=== PATIENT | male | born 1995 | race Hispanic/Latino ===

== ENCOUNTER 2019-05-17 02:27 | Emergency (ER) | payer OTHER, SELFPAY ==
[2019-05-17] MEDS ORDERED: DERMABOND SKIN ADHESIVE TOP ONE (02:31)
[2019-05-17] MEDS ORDERED: KETOROLAC 30 MG/ML INJ ONE (02:43)
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
[2019-05-17 03:17] VITALS: O2SAT 100
[2019-05-17 03:18] VITALS: BP 127/87
== END 2019-05-17 03:11 | disposition home or self-care (01) ==
LOC: ER 02:27
PROC: 0JQ10ZZ Repair Face Subcutaneous Tissue and Fascia, Open Approach (ICD-10-PCS; principal; 2019-05-17)
DX: S01.112A Laceration without foreign body of left eyelid and periocular area, initial encounter (principal); Y09 Assault by unspecified means; Y93.9 Activity, unspecified; Y92.009 Unspecified place in unspecified non-institutional (private) residence as the place of occurrence of the external cause
CPT/HCPCS: 99284

== ENCOUNTER 2020-07-20 13:26 | Emergency (ER) | payer SELFPAY ==
[2020-07-20] MEDS ORDERED: TETANUS & DIPHTHERIA TOX,ADULT 0.5 ML VIAL ONE (15:05)
[2020-07-20] MEDS ORDERED: AMOX/K CLAV 875 MG TAB ONE (15:05)
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
[2020-07-20 16:17] VITALS: TEMP 98.2
[2020-07-20 16:18] VITALS: BP 132/80; O2SAT 99
== END 2020-07-20 16:01 | disposition home or self-care (01) ==
LOC: ER 13:26
DX: S61.235A Puncture wound without foreign body of left ring finger without damage to nail, initial encounter (principal); Y04.1XXA Assault by human bite, initial encounter; F17.210 Nicotine dependence, cigarettes, uncomplicated; Z23 Encounter for immunization
CPT/HCPCS: 90471; 90714; 99283

== ENCOUNTER 2020-08-03 17:14 | Emergency (ER) | payer SELFPAY ==
[2020-08-03] MEDS ORDERED: NA CHLORIDE 0.9% 1,000 ML IV ONE (17:15)
[2020-08-03] MEDS ORDERED: NALOXONE HCL 2 MG/2 ML VIAL ONE ×2 (17:28→20:32)
[2020-08-03] MEDS ORDERED: RSI MEDICATION KIT IV ONE (17:30)
[2020-08-03 17:34] LABS: Urine Blood Negative (Negative); Urine Glucose 1+ (Negative); Urine Protein 2+ (Negative)
[2020-08-03 17:51] LABS: Absolute Lymphocytes (CBC) 4.6 K/uL (0.7-4.9); Basophils % 0.7 % (0-1.3); Hematocrit 45.6 % (39.6-49.0); Lymphocytes % 31.8 % (15.3-44.8); MPV 9.9 fL (7.6-11.3); RBC Red Blood Cell Count 4.89 M/uL (4.33-5.43)
[2020-08-03 17:55] LABS: Protime INR 1.01
[2020-08-03 18:06] LABS: ALT/SGPT 27 U/L (12-78); AST/SGOT 27 U/L (15-37); Albumin 3.9 g/dL (3.4-5.0); Alkaline Phosphatase 87 U/L (45-117); BUN Blood Urea Nitrogen 12 mg/dL (7-18); Bicarbonate 25 mmol/L (21-32); Bilirubin Direct 0.1 mg/dL (0-0.2); Bilirubin Total 0.4 mg/dL (0.2-1.0); Glucose Level 355 mg/dL (74-106); Potassium 4.1 mmol/L (3.5-5.1); Protein, Total 7.5 g/dL (6.4-8.2); Sodium Level 138 mmol/L (136-145)
[2020-08-03 18:06] LABS: Barbiturates NEGATIVE (NEGATIVE); Benzodiazepines NEGATIVE (NEGATIVE); Cocaine NEGATIVE (NEGATIVE); METHAMPHETAM NEGATIVE (NEGATIVE); Methadone NEGATIVE (NEGATIVE); Opiates NEGATIVE (NEGATIVE); Phencyclidine NEGATIVE (NEGATIVE); THC Cannibis POSITIVE (NEGATIVE)
--- NOTE | 2020-08-03 18:12 | RAD REPORT ---
EXAM DESCRIPTION: Vasu Single View08/03/2020 5:48 pm CLINICAL HISTORY: Shortness of breath COMPARISON: none FINDINGS: The lungs appear clear of acute infiltrate. The heart is normal size IMPRESSION: No acute abnormalities displayed
[2020-08-03] MEDS ORDERED: NA CHLORIDE 0.9% 1,000 ML ONE (19:32)
--- NOTE | 2020-08-03 23:28 | EDPHYS ---
Physician Documentation [facility] Name: Jose Wyatt Age: 25 yrs Sex: Male : 1995 Arrival Date: 08/03/2020 Time: 17:14 Bed 7 Private MD: ED Physician Ysabel Marquez HPI: 08/03 18:13 This 25 yrs old Male presents to ER via Carried with complaints of Overdose. ma2 18:13 The patient presents to the emergency department after a known overdose, a result of ma2 recreational substance abuse. Severity of symptoms: At their worst the symptoms were severe in the emergency department the symptoms are unchanged. Unable to obtain HPI due to altered mental status. The patient has experienced similar episodes in the past. Historical: - Allergies: 17:22 Unable to obtain; ph - PMHx: 17:22 Asthma; ph - PSHx: 17:22 L third finger; ph - Immunization history:: Adult Immunizations unknown. - Social history:: Smoking status: unknown. ROS: 18:13 Constitutional: Negative for fever, chills, and weight loss. ma2 18:13 Unable to obtain ROS due to altered mental status. Exam: 18:13 Head/Face: Normocephalic, atraumatic. ENT: Nares patent. No nasal discharge, no ma2 septal abnormalities noted. Tympanic membranes are normal and external auditory canals are clear. Oropharynx with no redness, swelling, or masses, exudates, or evidence of obstruction, uvula midline. Mucous membranes moist. Neck: Trachea midline, no thyromegaly or masses palpated, and no cervical lymphadenopathy. Supple, full range of motion without nuchal rigidity, or vertebral point tenderness. No Meningismus. 18:13 Cardiovascular: Regular rate and rhythm with a normal S1 and S2. No gallops, murmurs, or rubs. Normal PMI, no JVD. No pulse deficits. Respiratory: Lungs have equal breath sounds bilaterally, clear to auscultation and percussion. No rales, rhonchi or wheezes noted. No increased work of breathing, no retractions or nasal flaring. Abdomen/GI: Soft, non-tender, with normal bowel sounds. No distension or tympany. No guarding or rebound. No evidence of tenderness throughout. MS/ Extremity: Pulses equal, no cyanosis. Neurovascular intact. Full, normal range of motion. 18:13 Eyes: Pupils: constricted, bilaterally. 18:13 Neuro: Orientation: Not oriented to person, place, time, Motor: moving all extremities . Vital Signs: 17:10 Pulse 104; Resp 0; Pulse Ox 77% on R/A; jd3 17:11 Resp 20 A; Pulse Ox 95% on ambu bag; jd3 17:12 BP 138 / 91; Pulse 104; Resp 26 A; Pulse Ox 100% ; jd3 17:14 BP 121 / 76; Pulse 119; Resp 21 S; Pulse Ox 100% on Non-rebreather mask; jd3 17:18 BP 101 / 65; Pulse 116; Resp 25 S; Pulse Ox 100% on Non-rebreather mask; jd3 17:23 BP 101 / 65; Pulse 111; Resp 18; Pulse Ox 100% on R/A; ph 17:56 BP 121 / 82; Pulse 103; Resp 22 S; Pulse Ox 100% on R/A; jd3 18:37 BP 118 / 70; Pulse 103; Resp 19 S; Temp 97.1(TE); Pulse Ox 100% on R/A; jd3 19:30 BP 125 / 86; Pulse 92; Resp 14; Pulse Ox 100% on R/A; jb4 20:00 BP 121 / 82; Pulse 82; Resp 12; Pulse Ox 100% on R/A; jb4 21:15 BP 120 / 85; Pulse 70; Resp 13; Pulse Ox 100% on R/A; jb4 22:30 BP 111 / 79; Pulse 65; Resp 16; Pulse Ox 99% on R/A; jb4 23:30 BP 127 / 86; Pulse 65; Resp 17; Pulse Ox 99% on R/A; jb4 MDM: 18:08 Patient medically screened. ma2 18:13 Differential diagnosis: polypharmacy, over medication, hypoglycemia. ED course: given ma2 narcan and he is awake now . 23:25 Data reviewed: vital signs, nurses notes. Counseling: I had a detailed discussion with bethany the patient and/or guardian regarding: the historical points, exam findings, and any diagnostic results supporting the discharge/admit diagnosis, lab results, the need for outpatient follow up, to return to the emergency department if symptoms worsen or persist or if there are any questions or concerns that arise at home. 08/03 17:21 Order name: Acetaminophen; Complete Time: 19:09 [facility] 08/03 17:21 Order name: BMP; Complete Time: 19:09 [facility] 08/03 17:21 Order name: CBC with Diff; Complete Time: 19:09 [facility] 08/03 17:21 Order name: Ethanol; Complete Time: 19:09 [facility] 08/03 17:21 Order name: Hepatic Function; Complete Time: 19:09 [facility] 08/03 17:21 Order name: Protime (+inr); Complete Time: 19:09 [facility] 08/03 17:21 Order name: Ptt, Activated; Complete Time: 19:09 [facility] 08/03 17:21 Order name: Salicylate; Complete Time: 19:09 [facility] 08/03 17:21 Order name: Urine Drug Screen; Complete Time: 19:09 [facility] 08/03 17:33 Order name: Urine Dipstick-Ancillary; Complete Time: 19:09 [facility] 08/03 17:42 Order name: XRAY Chest (1 view); Complete Time: 19:09 [facility] 08/03 22:36 Order name: BMP; Complete Time: 00:16 [facility] 08/03 17:21 Order name: EKG; Complete Time: 17:21 [facility] 08/03 17:21 Order name: EKG - Nurse/Tech; Complete Time: 18:03 [facility] 08/03 17:21 Order name: IV Saline Lock; Complete Time: 17:39 [facility] 08/03 17:21 Order name: Labs collected and sent; Complete Time: 17:39 [facility] 08/03 17:21 Order name: O2 Per Protocol; Complete Time: 17:35 [facility] 08/03 17:21 Order name: O2 Sat Monitoring; Complete Time: 17:38 [facility] 08/03 17:21 Order name: Urine Dipstick-Ancillary (obtain specimen); Complete Time: 18:35 [facility] Administered Medications: 17:11 Drug: NARcan (naloxone) 2 mg Route: IVP; Site: right antecubital; jd3 17:11 Drug: NS 0.9% 1000 ml Route: IV; Rate: 1 bolus; Site: right antecubital; jd3 17:13 Drug: NARcan (naloxone) 2 mg Route: IVP; Site: right antecubital; jd3 17:18 Drug: NARcan (naloxone) 2 mg Route: IVP; Site: right antecubital; jd3 19:15 Drug: NS 0.9% 1000 ml Route: IV; Rate: 1 bolus; Site: right antecubital; jb4 23:00 Follow up: Response: No adverse reaction; IV Status: Completed infusion; IV Intake: jb4 1000ml 20:15 Drug: NARcan (naloxone) 1 mg Route: IVP; Site: right antecubital; jb4 20:30 Follow up: Response: No adverse reaction; Marked relief of symptoms jb4 Disposition: 08/03/20 23:27 Discharged to Home. Impression: Drug Overdose, Hyperglycemia, unspecified. - Condition is Stable. - Discharge Instructions: Drug Overdose. - Medication Reconciliation Form, Thank You Letter, Antibiotic Education, Prescription Opioid Use form. - Follow up: Private Physician; When: 2 - 3 days; Reason: Recheck today's complaints, Continuance of care, Re-evaluation by your physician. Signatures: Dispatcher [employer] EDMS Kal Workman PA PA Kassy Hughes RN RN Lui Lamas RN RN jb4 Rip John RN RN jd3 Ysabel Marquez MD MD ma2 Corrections: (The following items were deleted from the chart) 18:03 17:21 Suicide Screening ([place]) ordered. bethany jd3 23:33 23:27 08/03/2020 23:27 Discharged to Home. Impression: Drug Overdose. Condition is [facility] Stable. Forms are Medication Reconciliation Form, Thank You Letter, Antibiotic Education, Prescription Opioid Use. Follow up: Private Physician; When: 2 - 3 days; Reason: Recheck today's complaints, Continuance of care, Re-evaluation by your physician. [facility] 08/04 00:43 08/03 23:33 08/03/2020 23:27 Discharged to Home. Impression: Drug Overdose; jb4 Hyperglycemia, unspecified. Condition is Stable. Discharge Instructions: Drug Overdose. Forms are Medication Reconciliation Form, Thank You Letter, Antibiotic Education, Prescription Opioid Use. Follow up: Private Physician; When: 2 - 3 days; Reason: Recheck today's complaints, Continuance of care, Re-evaluation by your physician. [facility]
--- NOTE | 2020-08-03 23:28 | ER ---
Nurse's Notes [facility] Name: Jose Wyatt Age: 25 yrs Sex: Male : 1995 Arrival Date: 08/03/2020 Time: 17:14 Bed 7 Private MD: Diagnosis: Drug Overdose;Hyperglycemia, unspecified Presentation: 08/03 07:14 Acuity: MARCI 1 hb 07:14 Chief complaint: Brought in unresponsive by friends who reported taking unknown amount hb of "percs". Coronavirus screen:. Ebola Screen: Unable to complete the Ebola screening because:. Onset of symptoms was August 03, 2020. 07:14 Method Of Arrival: Carried hb 17:23 Initial Sepsis Screen: Does the patient meet any 2 criteria? No. Patient's initial ph sepsis screen is negative. Does the patient have a suspected source of infection? No. Patient's initial sepsis screen is negative. Risk Assessment: Do you want to hurt yourself or someone else? Patient reports no desire to harm self or others. Historical: - Allergies: 17:22 Unable to obtain; ph - PMHx: 17:22 Asthma; ph - PSHx: 17:22 L third finger; ph - Immunization history:: Adult Immunizations unknown. - Social history:: Smoking status: unknown. Screenin:23 Abuse screen: Denies threats or abuse. Denies injuries from another. Nutritional ph screening: No deficits noted. Tuberculosis screening: No symptoms or risk factors identified. Fall Risk None identified. Assessment: 17:10 General: Appears distressed, Behavior is unresponsive. Neuro: Level of Consciousness is jd3 unresponsive, Oriented to none. Cardiovascular: Capillary refill is > 3 seconds. Respiratory: Airway is patent Respiratory effort is no respiratory effort noted. Derm: Skin is diaphoretic, Skin is dusky, pale, Skin temperature is cool. 17:13 Reassessment: DOOR TO DOOR SELLING AGENT Jose Armando and Dr. Marquez at bedside. hb 17:14 Reassessment: pt with spontaneous respirations. non- re breather placed on pt. jd3 17:20 Reassessment: pt with normal respirations, non-re breather placed on pt. jd3 17:25 Reassessment: pt starting to wake up, even and unlabored respirations. sitting up and jd3 not following directions, confused. security at bedside helping to hold pt for pt safety. 17:30 Reassessment: Patient and/or family updated on plan of care and expected duration. Pain jd3 level reassessed. Patient is alert, oriented x 3, equal unlabored respirations, skin warm/dry/pink. Neuro: Level of Consciousness is awake, alert, obeys commands, Oriented to person, place, time, situation. Cardiovascular: Denies chest pain, Capillary refill < 3 seconds Rhythm is sinus tachycardia. Respiratory: Airway is patent Respiratory effort is even, unlabored, Respiratory pattern is regular, symmetrical, Denies cough, shortness of breath. GI: No signs and/or symptoms were reported involving the gastrointestinal system. : No signs and/or symptoms were reported regarding the genitourinary system. EENT: No signs and/or symptoms were reported regarding the EENT system. Derm: Skin is intact, Skin is diaphoretic, Skin is normal, Skin temperature is cool. Musculoskeletal: No signs and/or symptoms reported regarding the musculoskeletal system. 17:30 Pain: Denies pain. jd3 17:56 Reassessment: Patient and/or family updated on plan of care and expected duration. Pain jd3 level reassessed. Patient is alert, oriented x 3, equal unlabored respirations, skin warm/dry/pink. girlfriend at bedside. 18:35 Reassessment: Patient appears in no apparent distress at this time. Patient and/or jd3 family updated on plan of care and expected duration. Pain level reassessed. Patient is alert, oriented x 3, equal unlabored respirations, skin warm/dry/pink. pt resting in bed talking with girlfriend. Patient states feeling better. 19:00 Reassessment: Patient appears in no apparent distress at this time. Patient and/or jb4 family updated on plan of care and expected duration. Pain level reassessed. Patient is alert, oriented x 3, equal unlabored respirations, skin warm/dry/pink. 20:00 Reassessment: Pt has had a decrease in level of consciousness. Is now more lethargic, jb4 reports feeling confused. Respirations remain even and unlabored at this time. provider notified. See MAR for orders. 20:25 Reassessment: Pt is now awake and alert x4. Respirations are even and unlabored with no jb4 s/s of pain or distress noted. Girlfriend is at the bedside. 21:29 Reassessment: Patient appears in no apparent distress at this time. Patient and/or jb4 family updated on plan of care and expected duration. Pain level reassessed. Patient is alert, oriented x 3, equal unlabored respirations, skin warm/dry/pink. 22:30 Reassessment: Patient appears in no apparent distress at this time. Patient and/or jb4 family updated on plan of care and expected duration. Pain level reassessed. Patient is alert, oriented x 3, equal unlabored respirations, skin warm/dry/pink. 23:30 Reassessment: Patient appears in no apparent distress at this time. Patient and/or jb4 family updated on plan of care and expected duration. Pain level reassessed. Patient is alert, oriented x 3, equal unlabored respirations, skin warm/dry/pink. D/c pending ride home. 08/04 00:41 Reassessment: Patient appears in no apparent distress at this time. Patient and/or jb4 family updated on plan of care and expected duration. Pain level reassessed. Patient is alert, oriented x 3, equal unlabored respirations, skin warm/dry/pink. Overdose: 08/03 17:35 [place] Suicide Severity Screening: "In the past month, have you wished you were jd3 or wished you could go to sleep and not wake up?" Patient responds "no." "In the past month, have you actually had any thoughts of killing yourself?" Patient responds "no." "In your lifetime, have you ever done anything, started to do anything, or prepared to do anything to end your life?" Patient responds "no.". Patient took reports taking 1 pill of Percocet that was potentially laced with Fentanyl. Vital Signs: 17:10 Pulse 104; Resp 0; Pulse Ox 77% on R/A; jd3 17:11 Resp 20 A; Pulse Ox 95% on ambu bag; jd3 17:12 BP 138 / 91; Pulse 104; Resp 26 A; Pulse Ox 100% ; jd3 17:14 BP 121 / 76; Pulse 119; Resp 21 S; Pulse Ox 100% on Non-rebreather mask; jd3 17:18 BP 101 / 65; Pulse 116; Resp 25 S; Pulse Ox 100% on Non-rebreather mask; jd3 17:23 BP 101 / 65; Pulse 111; Resp 18; Pulse Ox 100% on R/A; ph 17:56 BP 121 / 82; Pulse 103; Resp 22 S; Pulse Ox 100% on R/A; jd3 18:37 BP 118 / 70; Pulse 103; Resp 19 S; Temp 97.1(TE); Pulse Ox 100% on R/A; jd3 19:30 BP 125 / 86; Pulse 92; Resp 14; Pulse Ox 100% on R/A; jb4 20:00 BP 121 / 82; Pulse 82; Resp 12; Pulse Ox 100% on R/A; jb4 21:15 BP 120 / 85; Pulse 70; Resp 13; Pulse Ox 100% on R/A; jb4 22:30 BP 111 / 79; Pulse 65; Resp 16; Pulse Ox 99% on R/A; jb4 23:30 BP 127 / 86; Pulse 65; Resp 17; Pulse Ox 99% on R/A; jb4 ED Course: 17:10 Inserted saline lock: 18 gauge in right antecubital area, using aseptic technique. jd3 Blood collected. 17:14 Patient arrived in ED. ds1 17:19 Triage completed. hb 17:19 Arm band placed on. hb 17:24 Patient has correct armband on for positive identification. Bed in low position. Call ph light in reach. Side rails up X2. bus driver/monitor on. Pulse ox on. NIBP on. 17:24 Sainz cath inserted, using sterile technique, 16 Fr., by unisaw operator, balloon inflated, to ph gravity drainage, urine specimen collected. returned catarina urine. 17:35 Rip John, RN is Primary Nurse. jd3 17:39 Ysabel Marquez MD is Attending Physician. jmm 17:40 X-ray completed. Portable x-ray completed in exam room. md1 17:48 XRAY Chest (1 view) In Process Unspecified. EDMS 17:51 Initial lab(s) drawn, by ED staff, sent to lab. Urine collected: Sainz catheter mh5 specimen, clear. 17:52 EKG done, by ED staff, reviewed by Ysabel Marquez MD. mh5 18:13 Kal Workman PA is PHCP. jmm 08/04 00:41 No provider procedures requiring assistance completed. IV discontinued, intact, jb4 bleeding controlled, No redness/swelling at site. Pressure dressing applied. Administered Medications: 08/03 17:11 Drug: NARcan (naloxone) 2 mg Route: IVP; Site: right antecubital; jd3 17:11 Drug: NS 0.9% 1000 ml Route: IV; Rate: 1 bolus; Site: right antecubital; jd3 17:13 Drug: NARcan (naloxone) 2 mg Route: IVP; Site: right antecubital; jd3 17:18 Drug: NARcan (naloxone) 2 mg Route: IVP; Site: right antecubital; jd3 19:15 Drug: NS 0.9% 1000 ml Route: IV; Rate: 1 bolus; Site: right antecubital; jb4 23:00 Follow up: Response: No adverse reaction; IV Status: Completed infusion; IV Intake: jb4 1000ml 20:15 Drug: NARcan (naloxone) 1 mg Route: IVP; Site: right antecubital; jb4 20:30 Follow up: Response: No adverse reaction; Marked relief of symptoms jb4 Intake: 23:00 IV: 1000ml; Total: 1000ml. jb4 Outcome: 23:27 Discharge ordered by MD. sims 08/04 00:41 Discharged to home ambulatory, with friend. jb4 Condition: stable Discharge instructions given to patient, Instructed on discharge instructions, follow up and referral plans. Demonstrated understanding of instructions, follow-up care. 00:43 Patient left the ED. jb4 Signatures: Dispatcher [employer] EDMS Kal Workman PA PA jmm Sanford, Demi ds1 Kassy Smith RN RN ph Baxter, Heather, RN RN hb Bryson, James, RN RN jb4 Martinez, Maria mh5 Davies, Jonathon, RN RN jd3 Di Santo, Mikaela md1
[2020-08-04 00:02] LABS: BUN Blood Urea Nitrogen 9 mg/dL (7-18); Bicarbonate 26 mmol/L (21-32); Glucose Level 85 mg/dL (74-106); Potassium 4.6 mmol/L (3.5-5.1); Sodium Level 140 mmol/L (136-145)
[2020-08-04 00:58] VITALS: TEMP 97.1
[2020-08-04 01:04] VITALS: O2SAT 99
[2020-08-04 01:05] VITALS: BP 127/86
--- NOTE | 2020-08-05 08:26 | EKG ---
Test Date: 2020-08-03 Test Time: 17:46:18 Rag Boiler: IVÁN MEASUREMENT RESULTS: Intervals: Rate: 111 WV: 146 QRSD: 80 QT: 336 QTc: 456 [place]: P: 65 WV: 146 QRS: 72 T: 48 INTERPRETIVE STATEMENTS: Sinus tachycardia Otherwise normal ECG No previous ECG available for comparison Electronically Signed On 08-05-20 08:24:05 CDT by Arjun Rogers
== END 2020-08-04 00:43 | disposition home or self-care (01) ==
LOC: ER 17:14
DX: T50.991A Poisoning by other drugs, medicaments and biological substances, accidental (unintentional), initial encounter (principal); R73.9 Hyperglycemia, unspecified
CPT/HCPCS: 36415; 51702; 71045; 80048; 80076; 80307; 80320; 80329; 81003; 85025; 85610; 85730; 93005; 96361; 96374; 99291; 99292; J2310; J7030

== ENCOUNTER 2020-09-13 00:20 | Emergency (ER) | payer OTHER, SELFPAY ==
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
[2020-09-13 05:34] VITALS: TEMP 97.7; O2SAT 98
[2020-09-13 05:35] VITALS: BP 129/73
--- NOTE | 2020-09-13 07:34 | RAD REPORT ---
EXAM DESCRIPTION: Vasu Single View09/13/2020 1:18 am CLINICAL HISTORY: Chest pain COMPARISON: July 2020 FINDINGS: The lungs appear clear of acute infiltrate. The heart is normal size IMPRESSION: No acute abnormalities displayed
--- NOTE | 2020-09-13 14:06 | RAD REPORT ---
EXAM DESCRIPTION: CT - Head Brain Wo Cont - 09/13/2020 5:03 am CLINICAL HISTORY: DIZZINESS TECHNIQUE: Contiguous axial CT images obtained through the brain without IV contrast. Coronal and sa gittal reformatted images were provided. This exam was performed according to our departmental dose-optimization program, which includes autom ated exposure control, adjustment of the mA and/or kV according to patient size and/or use of iterati ve reconstruction technique. COMPARISON: None available for comparison FINDINGS: Brain: No significant white matter changes. No focal mass effect. Martinez-white matter differ entiation is within normal limits. No hemorrhage. Ventricles: No ventriculomegaly or midline shift. Extra-axial spaces: No extra-axial collection or hemorrhage. Paranasal sinuses and mastoid air cells: Well-aerated Vessels: Unremarkable Bones: Unremarkable Soft tissues: Unremarkable IMPRESSION: No acute intracranial or extra-axial abnormality. Electronically signed by: Ross Mae MD 09/13/2020 2:09 AM CDT Due to temporary technical issues with the PACS/Fluency reporting system, reports are being signed by the in house radiologists without review as a courtesy to insure prompt reporting. The interpreting radiologist is fully responsible for the content of the report.
== END 2020-09-13 03:02 | disposition home or self-care (01) ==
LOC: ER 00:20
DX: G44.319 Acute post-traumatic headache, not intractable (principal); J45.909 Unspecified asthma, uncomplicated
CPT/HCPCS: 70450; 71045; 99284

== ENCOUNTER 2022-09-28 23:36 | Emergency (ER) | payer OTHER, SELFPAY ==
[2022-09-29] MEDS ORDERED: ONDANSETRON 4 MG/2 ML VIAL ONE (00:14)
[2022-09-29] MEDS ORDERED: KETOROLAC 30 MG/ML INJ ONE (00:14)
[2022-09-29] MEDS ORDERED: NA CHLORIDE 0.9% 1,000 ML ONE (00:14)
[2022-09-29] MEDS ORDERED: MORPHINE 4 MG/ML SYR ONE (00:14)
[2022-09-29] MEDS ORDERED: methocarbamoL 500 MG TAB ONE (00:14)
[2022-09-29 00:25] LABS: Protime INR 1.14
[2022-09-29 00:26] LABS: Absolute Lymphocytes (CBC) 1.4 K/uL (0.7-4.9); Hematocrit 42.3 % (39.6-49.0); Lymphocytes % 20.3 % (15.3-44.8); MCV 86.6 fL (80-100); MPV 8.2 fL (7.6-11.3); Platelets 303 thou/uL (152-406); RBC Red Blood Cell Count 4.89 M/uL (4.33-5.43)
[2022-09-29 00:35] LABS: SARS-CoV-2 Antigen Rapid Res Negative (Negative)
[2022-09-29 00:36] LABS: Potassium 3.3 mEq/L (3.5-5.1)
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
[2022-09-29] MEDS ORDERED: CODEINE 30MG/APAP 300MG TAB ONE (03:08)
[2022-09-29] MEDS ORDERED: IBUPROFEN 400 MG TAB ONE (03:08)
[2022-09-29 03:32] VITALS: TEMP 99.1
[2022-09-29 03:37] VITALS: O2SAT 100
[2022-09-29 03:43] VITALS: BP 131/84
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
== END 2022-09-29 03:06 | disposition home or self-care (01) ==
LOC: ER 23:36
DX: S13.8XXA Sprain of joints and ligaments of other parts of neck, initial encounter (principal); S29.092A Other injury of muscle and tendon of back wall of thorax, initial encounter; G44.319 Acute post-traumatic headache, not intractable; V49.40XA Driver injured in collision with unspecified motor vehicles in traffic accident, initial encounter; Z20.822 Contact with and (suspected) exposure to COVID-19
CPT/HCPCS: 85025; 80048; 36415; 86900; 86850; 85610; 86901; 70450; 72125; 71260; 74177; 87811; Q9967; J2405; J7030; 96361; 96374; 96375; 99285

== ENCOUNTER 2024-01-30 16:57 | Emergency (ER) | payer OTHER, SELFPAY ==
--- NOTE | 2024-01-30 18:51 | RAD REPORT ---
EXAM:Ribs Left CLINICAL HISTORY: Left rib pain FINDINGS: No fracture seen
--- NOTE | 2024-01-30 18:52 | RAD REPORT ---
Procedure: Chest Single View HISTORY: Chest pain COMPARISON: 2020 FINDINGS: The lungs appear clear of acute infiltrate. No significant pleural effusion noted. The heart is normal size. IMPRESSION: No acute abnormality is displayed.
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
[2024-01-30 21:06] VITALS: BP 116/94; TEMP 96.3; O2SAT 97
== END 2024-01-30 20:22 | disposition home or self-care (01) ==
LOC: ER 16:57
DX: R07.9 Chest pain, unspecified (principal); M25.562 Pain in left knee; M25.561 Pain in right knee; V49.40XA Driver injured in collision with unspecified motor vehicles in traffic accident, initial encounter; F17.210 Nicotine dependence, cigarettes, uncomplicated
CPT/HCPCS: 71045; 99282